=== PATIENT | male | born 1990 | race Caucasian/White ===

== ENCOUNTER 2020-08-26 09:25 | Emergency (ER) | payer SELFPAY ==
[2020-08-26] MEDS ORDERED: HYDROmorphone 0.5 MG/0.5 ML Syringe IVPUSH ONE (09:58)
[2020-08-26] MEDS ORDERED: Orphenadrine 60 MG/2 ML Inj IM ONE (09:58)
[2020-08-26] MEDS ORDERED: methylPREDNISolone Sodium Succinate 125 MG/2 ML SDV IVPUSH ONE (09:59)
--- NOTE | 2020-08-26 10:05 | EDM.PDOC ---
ED HPI GENERAL MEDICAL PROBLEM - General Chief Complaint: Back Pain or Injury Time Seen by Provider: 08/26/20 09:55 Source of Information: Reports: Patient, Family History Limitations: Reports: No Limitations - History of Present Illness INITIAL COMMENTS - FREE TEXT/NARRATIVE: This 29 yo male patient reports to the ED due to lower back pain. The patient reports his pain started 2 days ago, but has gotten progressively worse. At the time of calling the ambulance, the patient was unable to walk or stand. The patient does not recall any specific injury to the area. The patient reports his pain is mostly on the left side of his lower back. The patient reports his pain is episodic, but gets much worse when he attempts to move. Onset Date: 08/24/20 Duration: Intermittent Location: Reports: Back (left lower back) Quality: Reports: Ache, Sharp, Stabbing Severity: Severe Improves with: Reports: Rest Worsens with: Reports: Movement Context: Reports: Activity Associated Symptoms: Reports: No Other Symptoms Lower Back Pain Score (Numeric/FACES): 6 - Related Data Allergies Allergy/AdvReac Type Severity Reaction Status Date / Time No Known Allergies Allergy Verified 08/26/20 09:37 Home Meds: Home Meds . [No Known Home Meds] 11/30/17 [History] Past Medical History - Past Health History Medical/Surgical History: Denies Medical/Surgical History HEENT History: Reports: None Cardiovascular History: Reports: None Respiratory History: Reports: None Gastrointestinal History: Reports: None Genitourinary History: Reports: None Musculoskeletal History: Reports: None Neurological History: Reports: None Psychiatric History: Reports: None Endocrine/Metabolic History: Reports: None Hematologic History: Reports: None Immunologic History: Reports: None Oncologic (Cancer) History: Reports: None Dermatologic History: Reports: None - Infectious Disease History Infectious Disease History: Reports: None - Past Surgical History Head Surgeries/Procedures: Reports: None Social & Family History - Family History Family Medical History: Unobtainable - Tobacco Use Tobacco Use Status *Q: Never Tobacco User - Caffeine Use Caffeine Use: Reports: None - Recreational Drug Use Recreational Drug Use: No ED ROS GENERAL - Review of Systems Review Of Systems: Comprehensive ROS is negative, except as noted in HPI. ED EXAM,LOWER BACK PAIN/INJURY - Physical Exam Exam: See Below Exam Limited By: No Limitations General Appearance: Alert, WD/WN, Moderate Distress Eye Exam: Bilateral Eye: EOMI, Normal Inspection, PERRL Ears: Normal External Exam, Normal Canal, Hearing Grossly Normal, Normal TMs Nose: Normal Inspection, Normal Mucosa, No Blood Throat/Mouth: Normal Inspection, Normal Lips, Normal Teeth, Normal Gums, Normal Oropharynx, Normal Voice, No Airway Compromise Head: Atraumatic, Normocephalic Neck: Normal Inspection, Supple, Non-Tender, Full Range of Motion Respiratory/Chest: No Respiratory Distress, Lungs Clear, Normal Breath Sounds, No Accessory Muscle Use, Chest Non-Tender Cardiovascular: Normal Peripheral Pulses, Regular Rate, Rhythm, No Edema, No Gallop, No JVD, No Murmur, No Rub GI/Abdominal: Normal Bowel Sounds, Soft, Non-Tender, No Organomegaly, No Distention, No Abnormal Bruit, No Mass (Male) Exam: Deferred Rectal (Males) Exam: Deferred Back Exam: Paraspinal Tenderness (left lower back) Extremities: Limited Range of Motion (due to lower back pain and muscle spasm) Neurological: Alert, Normal Mood/Affect Psychiatric: Normal Affect, Normal Mood Skin Exam: Warm, Dry, Intact, Normal Color, No Rash Lymphatic: No Adenopathy Course - Vital Signs Last Recorded V/S: Last Vital Signs Temp 97.1 F 08/26/20 09:33 Pulse 76 08/26/20 09:33 Resp 18 08/26/20 09:33 BP 125/74 08/26/20 09:33 Pulse Ox 99 08/26/20 09:33 - Orders/Labs/Meds Meds: Medications Discontinued Medications Generic Name Dose Route Start Last Admin Trade Name Paddy PRN Reason Stop Dose Admin Hydromorphone HCl 0.5 mg 08/26/20 09:58 08/26/20 10:48 Hydromorphone 0.5 Mg/0.5 Ml Syringe IVPUSH 08/26/20 09:59 0.5 mg ONETIME ONE Administration Hydromorphone HCl 1 mg 08/26/20 12:42 08/26/20 12:47 Hydromorphone 1 Mg/Ml Syringe IVPUSH 08/26/20 12:43 1 mg ONETIME ONE Administration Methylprednisolone Sodium Succinate 125 mg 08/26/20 09:59 08/26/20 10:50 Methylprednisolone Sodium Succinate 125 Mg/2 Ml Sdv IVPUSH 08/26/20 10:00 125 mg ONETIME ONE Administration Orphenadrine Citrate 60 mg 08/26/20 09:58 08/26/20 10:51 Orphenadrine 60 Mg/2 Ml Inj IM 08/26/20 09:59 60 mg ONETIME ONE Administration Departure - Departure Time of Disposition: 13:25 Disposition: Home, Self-Care 01 Condition: Fair Clinical Impression: Low back strain Qualifiers: Encounter type: initial encounter Qualified Code(s): S39.012A - Strain of muscle, fascia and tendon of lower back, initial encounter - Discharge Information *PRESCRIPTION DRUG MONITORING PROGRAM REVIEWED*: Not Applicable *COPY OF PRESCRIPTION DRUG MONITORING REPORT IN PATIENT SACHIN: Not Applicable Instructions: Pain Medicine Instructions, [id number], Muscle Strain, [id number] Forms: ED Department Discharge Care Plan Goals: The patient and family were advised of the examination and CT results during the visit. The patient was given IV steroids, IV muscle relaxers and IV pain medications during the visit. The patient was discharged with scripts for: 1) Prednisone (20 mg) #10 to take 2 by mouth daily for 5 days, 2) Flexeril (10 mg) #20 to take 1 by mouth every 6 hours and 3) Nevis (10/325) #10 to take 1 by mouth every 6 hours as needed for pain. The patient was encouraged to rest and relax over the next 48 hours. If the patient continues to have symptoms, the patient should follow-up with his primary care facility for further evaluation and management. Sepsis Event Note (ED) - Evaluation Sepsis Screening Result: No Definite Risk - Focused Exam Vital Signs: Vital Signs Temp Pulse Resp BP Pulse Ox 08/26/20 09:33 97.1 F 76 18 125/74 99
--- NOTE | 2020-08-26 12:25 | CT ---
EXAMINATION: TEMPORARY SEX: Unknown AGE: CLINICAL HISTORY: 29-year-old 243 pound male who "woke up" this morning with low back pain. No known trauma. Scan technique: Volume acquisition of data emergency unenhanced CT scan of the lumbar spine obtained with the patient lying supine on the Siem[employer] multislice scanner [place], [place]. All data archived in the PACS system for storage, reformatting axial/sagittal/coronal planes and study (soft tissue/bone windows). Interpretation: Early arthritic changes. Otherwise negative exam. 1. Homogeneous normal bone mineral density and normal height/alignment of the 5 lumbar vertebra. 2. No sign of pathologic skeletal lesion, congenital abnormality, lumbar fracture or dislocation (spondylolisthesis). 3. *Subtle, relative mild intervertebral disc space narrowing at the lowest L5-S1 level with associated slight marginal spondylosis and disc "bulge" at this, and, the level above. If clinical radiculopathy suggest considering unenhanced MRI. 4. Early marginal spondylosis several other levels mid lumbar spine. Normal caliber aortoiliac vessels. 5. Symmetric spacing normal-appearing SI and hip joints without arthritic degenerative change. 6. No urolithiasis or obstructive uropathy. Tiny phleboliths both sides of the pelvis. Distended urinary bladder.
[2020-08-26] MEDS ORDERED: HYDROmorphone 1 MG/ML Syringe IVPUSH ONE (12:42)
== END 2020-08-26 14:15 | disposition home or self-care (01) ==
LOC: DL.ED 09:25
DX: S39.012A Strain of muscle, fascia and tendon of lower back, initial encounter (principal); X58.XXXA Exposure to other specified factors, initial encounter
CPT/HCPCS: 72131; 96372; 96374; 96375; 96376; 99284; J1170; J2360; J2930; 99283

== ENCOUNTER 2024-02-22 15:02 | Emergency (ER) | payer SELFPAY ==
[2024-02-22] MEDS: Oxymetazoline 0.05% Nasal Spray 30 ML Bottle NAS ONE (15:23)
== END 2024-02-22 15:55 | disposition home or self-care (01) ==
LOC: DL.ED 15:02
DX: R04.0 Epistaxis (principal); Z86.16 Personal history of COVID-19
CPT/HCPCS: 99283; A9270; 99282